=== PATIENT | male | born 1955 | race Caucasian/White ===

== ENCOUNTER 2017-01-23 10:27 | Day surgery (SDC) | payer BC ==
[2017-01-21 09:14] VITALS: BMI 40.8
[2017-01-23 11:00] VITALS: BP 92/65; PULSE 98; TEMP 98.5
[2017-01-23] MEDS ORDERED: PROPOFOL 20 ML ONE (11:55)
[2017-01-23] MEDS ORDERED: MIDAZOLAM HCL 2 MG/2 ML SINGLE DOSE VIAL ONE (11:55)
== END 2017-01-23 12:00 | disposition home or self-care (01) ==
LOC: JASU-SURG 10:27
PROVIDERS: ATTEND Urology
PROC: 0VQ Male Reproductive System, Repair (ICD-10-PCS; principal; 2017-01-23 12:00)
DX: Z53.8 Procedure and treatment not carried out for other reasons (principal)

== ENCOUNTER 2017-01-28 06:07 | Day surgery (SDC) | payer BC ==
[2017-01-27 09:39] VITALS: BMI 40.8
[~2017-01-28 06:07] MED LIST: BUPIVACAINE HCL/PF 0.5% (5MG/ML) 10 ML VIAL IJ ONE
[2017-01-28] MEDS ORDERED: MIDAZOLAM HCL 2 MG/2 ML SINGLE DOSE VIAL ONE (07:38)
[2017-01-28] MEDS ORDERED: SODIUM CHLORIDE 0.9% P/F 10 ML VIAL IJ ONE (07:45)
[2017-01-28] MEDS ORDERED: ceFAZolin SODIUM 1 GM VIAL IVPB ONE (07:47)
[2017-01-28] MEDS ORDERED: BUPIVACAINE HCL/PF 0.5% (5MG/ML) 10 ML VIAL ONE ×2 (07:53→08:09)
[2017-01-28] MEDS ORDERED: BACITRACIN 15 GM TUBE TOPICAL OINTMENT ONE (08:20)
[2017-01-28] MEDS ORDERED: oxyCODONE HCL 5 MG TABLET PO PRN ×2 (08:34→10:33)
--- NOTE | 2017-01-28 08:36 | OP ---
Operative Note - Note: Operative Date: 01/28/17 Pre-Operative Diagnosis: large left hydrocele Operation: left hydrocelectomy Findings: large left hydrocele Post-Operative Diagnosis: Same as Pre-op Surgeon: Eddie Doty Anesthesia: Spinal Specimens Removed: hydrocele sac Estimated Blood Loss (mls): 2 Operative Report Dictated: Yes
[2017-01-28] MEDS ORDERED: DEXTROSE 5%-0.45% SALINE 1,000 ML IV SCH (08:45)
--- NOTE | 2017-01-28 09:38 | OP ---
DATE OF OPERATION: 01/28/2017 PREOPERATIVE DIAGNOSIS: Large left hydrocele. POSTOPERATIVE DIAGNOSIS: Large left hydrocele. PROCEDURE: Left hydrocelectomy. SURGEON: Eddie Paredes MD INDICATIONS: Patient is a 61-year-old male with symptomatic left hydrocele who elected to undergo a hydrocelectomy, understanding the risks of bleeding, infection, hematoma formation, recurrence of hydrocele, chronic pain, potential delayed healing, and potential need for additional procedures. DESCRIPTION OF PROCEDURE: After informed consent was obtained, the patient was taken to the OR and was placed supine on the operating room table. He was given spinal anesthetic. The scrotum was then prepped and draped in standard surgical fashion. An approximately 5-cm transverse left regulo-scrotal incision was created with a No. 15 blade. The dartos layer was then incised with cautery. The tunica vaginalis was then identified and freed from its scrotal attachments and delivered. The tunica vaginalis was then incised and approximately mL of clear yellow hydrocele fluid evacuated from the sac. The sac was then excised using cautery in its entirety and sent to Pathology for analysis. The edge of the remaining sac that was attached to the testicle, the edges were cauterized. Enough of the sac was removed that eversion of the sac was not necessary. Enough of the sac was removed so that there was no tissue to daina, so making eversion completely unnecessary. At this point, the sac was placed back in its normal anatomic position. All bleeding sites were cauterized. Attention was then turned to closing the dartos layer in interrupted fashion with 3-0 chromic, and then, the skin was closed in interrupted fashion using mattress sutures of 2-0 chromic. A Madison drain was then placed. Fluffs and scrotal support were then placed. Patient was awoken from anesthesia and transferred to the recovery room in stable condition. There were no complications. Estimated blood loss was minimal. EDDIE PAREDES M.D. [id number]
[2017-01-28] MEDS ORDERED: ONDANSETRON 4 MG/2 ML VIAL IVPUSH PRN (10:33)
[2017-01-28] MEDS ORDERED: LACTATED RINGERS SOLUTION 1,000 ML IV SCH (10:45)
[2017-01-28 11:33] VITALS: TEMP 97.9
[2017-01-28 14:33] VITALS: BP 148/87; PULSE 85
--- NOTE | 2017-01-29 15:51 | PATH ---
Surgical Pathology Report Patient Name: KAYLYN LOUIS [facility]. Rec. #: [id number] /Age/Gender: 1955 (Age: 61) / M Account: [id number] Location: [facility] Taken: 01/28/2017 Received: 01/28/2017 Reported: 01/29/2017 Physicians: Eddie Doty M.D. Specimen(s) Received HYDROCELE SAC Clinical History Preoperative diagnosis: Left hydrocele Postoperative diagnosis: Same Final Diagnosis LEFT HYDROCELE SAC, EXCISION: FIBROMEMBRANOUS TISSUE CONSISTENT WITH HYDROCELE SAC. Electronically Signed Truman Stein M.D. Gross Description Received in formalin labeled "hydrocele sac," is a 9.0 x 4.0 x 0.2 cm portion of pink-conrad fibromembranous tissue, consistent with a hydrocele sac. Location Worker sections are submitted in one cassette. 01/28/201701/28/2017
== END 2017-01-28 14:40 | disposition home or self-care (01) ==
LOC: JASU-SURG 06:07
PROVIDERS: ATTEND Urology
PROC: 0VB70ZZ Excision of Left Tunica Vaginalis, Open Approach (ICD-10-PCS; principal; 2017-01-28 07:30)
DX: N43.3 Hydrocele, unspecified (principal)
CPT/HCPCS: 88302-TC; 94760

== ENCOUNTER 2020-03-20 08:17 | Day surgery (SDC) | payer BC ==
[2020-03-15 16:27] VITALS: BMI 30.8
[2020-03-20 10:09] VITALS: TEMP 97.4
[2020-03-20 10:40] VITALS: BP 121/64; PULSE 75
== END 2020-03-20 10:40 | disposition home or self-care (01) ==
LOC: FASU 08:17
PROVIDERS: ATTEND Internal Medicine Gastroenterology
PROC: 0DB98ZX Excision of Duodenum, Via Natural or Artificial Opening Endoscopic, Diagnostic (ICD-10-PCS; principal; 2020-03-20)
PROC: 0DB68ZX Excision of Stomach, Via Natural or Artificial Opening Endoscopic, Diagnostic (ICD-10-PCS; 2020-03-20)
PROC: 0DB58ZX Excision of Esophagus, Via Natural or Artificial Opening Endoscopic, Diagnostic (ICD-10-PCS; 2020-03-20)
DX: K22.70 Barrett's esophagus without dysplasia (principal); K29.50 Unspecified chronic gastritis without bleeding; K31.9 Disease of stomach and duodenum, unspecified; R12 Heartburn